=== PATIENT | male | born 1930 | race Hispanic/Latino ===

== ENCOUNTER 2017-12-28 07:28 | Day surgery (SDC) | payer MEDICARE ==
[2017-12-28] MEDS ORDERED: Propofol 10 mg/ml Inj (20 ML) ONE (08:42)
[2017-12-28 10:21] VITALS: TEMP 97.6; O2SAT 98
[2017-12-28] MEDS ORDERED: Sodium Chloride 0.9% 1,000 ML IV SCH (10:30)
[2017-12-28 10:46] VITALS: BP 153/78; PULSE 77; RESP 11
== END 2017-12-28 11:47 | disposition home or self-care (01) ==
LOC: ENDO 07:28
PROVIDERS: ATTEND Specialist
DX: D12.2 Benign neoplasm of ascending colon (principal); D12.3 Benign neoplasm of transverse colon; K57.30 Diverticulosis of large intestine without perforation or abscess without bleeding; K64.8 Other hemorrhoids; R19.5 Other fecal abnormalities; E78.00 Pure hypercholesterolemia, unspecified
CPT/HCPCS: 45380; 45385; 88305; J2704; J7030